=== PATIENT | female | born 1970 | race Caucasian/White ===

== ENCOUNTER 2016-11-21 09:36 | Emergency (ER) | payer MEDICAID ==
[~2016-11-21] VITALS: Ht 157.5 cm; Wt 62.0 kg
[2016-11-21 10:02] VITALS: BP 127/77
== END 2016-11-21 11:21 | disposition home or self-care (01) ==
LOC: ER 10:21
DX: L50.9 Urticaria, unspecified (principal); T78.40XA Allergy, unspecified, initial encounter; Z88.6 Allergy status to analgesic agent; E78.00 Pure hypercholesterolemia, unspecified
CPT/HCPCS: 99283